=== PATIENT | male | born 1990 | race Hispanic/Latino ===

== ENCOUNTER 2018-08-31 09:17 | Emergency (ER) | payer SELFPAY ==
[~2018-08-31] VITALS: Ht 175.3 cm; Wt 100.0 kg
[~2018-08-31 09:17] MED LIST: NO MEDS
[2018-08-31] MEDS ORDERED: CEPHALEXIN500 M1 PO (10:01)
[2018-08-31 10:02] VITALS: BP 137/90
== END 2018-08-31 10:12 | disposition home or self-care (01) | DRG 605 ==
LOC: ED 09:17
PROC: 0HQGXZZ Repair Left Hand Skin, External Approach (ICD-10-PCS; principal; 2018-08-31)
PROC: 2W3KX1Z Immobilization of Left Finger using Splint (ICD-10-PCS; 2018-08-31)
DX: S61.211A Laceration without foreign body of left index finger without damage to nail, initial encounter (principal); W45.8XXA Other foreign body or object entering through skin, initial encounter; Y93.9 Activity, unspecified; Y92.9 Unspecified place or not applicable

== ENCOUNTER 2018-09-03 09:38 | Emergency (ER) | payer SELFPAY ==
[~2018-09-03] VITALS: Ht 175.3 cm; Wt 95.0 kg
[~2018-09-03 09:38] MED LIST changes: +CEPHALEXIN500 M1 PO
[2018-09-03 10:01] VITALS: BP 125/77
== END 2018-09-03 10:07 | disposition home or self-care (01) | DRG 950 ==
LOC: ED 09:38
DX: S61.211D Laceration without foreign body of left index finger without damage to nail, subsequent encounter (principal); X58.XXXD Exposure to other specified factors, subsequent encounter